=== PATIENT | male | born 1960 | race Hispanic/Latino ===

== ENCOUNTER 2018-12-17 14:32 | Emergency (ER) | payer BC ==
[2018-12-17 14:49] VITALS: O2SAT 98
--- NOTE | 2018-12-17 15:33 | ED PDOC ---
HPI: Back Chief Complaint (Provider): Left sided back pain History Per: Patient History/Exam Limitations: no limitations Onset/Duration Of Symptoms: Days Current Symptoms Are (Timing): Still Present Quality Of Discomfort: Dull Severity: None Pain Scale Rating Of: 8 Previous Symptoms: Back Pain Associated Symptoms: None Exacerbating Factor(s): Other (deep breathing) Additional Complaint(s): 58 yo male with history of melanoma (resected 01/2018) and recent adrenal tumor removal, November 17 2018, was sent by PMD because he was found to have left pleural effusion on chest xray yesterday. Patient reports he has also been complaining of left sided, non-radiating, dull back pain for 2 weeks. Exacerbating factors are deep breathing and movement and alleviating factors are staying still. Reports that he visited his PMD yesterday because of the back pain and she sent him for a Chest Xray that revealed a left pleural effusion; patient reports she told him to come into the ED to rule out a Pulmonary Embolism. Denies chest pain, dysnea, recent trauma, nausea, vomiting, abdominal pain, dysuria, frequency and urgency. PMD: Dr. Spencer Zimmerman in [place]. - Risk Factors AAA Risk Factors: Pos: Older Than 49 Years Of Age Neg: Hypertension, Connective Tissue Disease, Marfan's Syndrome, James- Danlos Syndrome, Prior AAA, 1st Degree Relative/s With AAA <Janee Bhandari - Last Filed: 12/17/18 17:16> <Jhoana Hall - Last Filed: 12/17/18 22:13> Time Seen by Provider: 12/17/18 15:09 Chief Complaint (Nursing): Shortness Of Breath Past Medical History Vital Signs: Last Vital Signs Temp 98.3 F 12/17/18 14:48 Pulse 90 12/17/18 14:48 Resp 18 12/17/18 14:48 BP 113/82 12/17/18 14:48 Pulse Ox 98 12/17/18 14:48 Primary Care Provider: Spencer Zimmerman - Medical History PMH: Hypothyroidism (mild) - Family History Family History: States: Unknown Family Hx <Janee Bhandari - Last Filed: 12/17/18 17:16> Vital Signs: Last Vital Signs Temp 98.1 F 12/17/18 16:30 Pulse 78 12/17/18 16:30 Resp 16 12/17/18 16:30 BP 120/70 12/17/18 16:30 Pulse Ox 98 12/17/18 17:17 <Jhoana Hall - Last Filed: 12/17/18 22:13> - Allergies Allergies/Adverse Reactions: Allergies Allergy/AdvReac Type Severity Reaction Status Date / Time No Known Allergies Allergy Verified 12/17/18 14:48 Supervising Attending Note - Supervising Attending Note The Documented history was done by the: Physician Metal Smelter The documented physical exam was done by the: Physician Metal Smelter The documented procedures were done by the: Physician Metal Smelter - Notes: Notes:: Initial workup performed with resident at [facility]. Initial workup for "blood clot," unclear if blood clot means pulmonary embolism vs complications for pleural effusion. Patient also having worsened pain since adrenal tumor was removed. CT shows small left pleural effusion and to collections of retroperitoneal fluid - possible complications from tumor removal. H&H and VBG elevated to 2.5 discussed with regional director of finance surgeon. Patient advised to followup with primary surgeons. Repeat hemoglobin stable and lactate shows improvement. Patient is stable for discharge. Continue taking T3 provided by PMD. Will give copies of CT to patient. Patient instructed to return if weakness, blood in stool, or any further complications <Jhoana Hall - Last Filed: 12/17/18 22:13> Physical Exam - Physical Exam Appears: Positive for: Uncomfortable Skin: Positive for: Normal Color, Warm, Dry Eye Exam: Positive for: Normal appearance, PERRL Cardiovascular/Chest: Positive for: Regular Rate, Rhythm (S1 and S2 appreciated), Other (Scar present at middle of chest from removal of melanoma) Respiratory: Positive for: Normal Breath Sounds, Rhonchi (Rhonchi and decreased breath sounds present at left lower base. ). Negative for: Decreased Breath Sounds, Accessory Muscle Use, Crackles, Rales, Stridor, Wheezing, Respiratory Distress Gastrointestinal/Abdominal: Positive for: Normal Exam, Bowel Sounds, Soft, Other (Left sided clean incision site present, non-draining .). Negative for: Tenderness, Distended, Guarding, Rebound Back: Positive for: Normal Inspection (Normal gait), Other (Scoliosis present at lumbar; non-tender over area of interest; Negative straight leg testing. ). Negative for: L CVA Tenderness, R CVA Tenderness, Vertebral Tenderness (No paraspinal tenderness. ), Decreased ROM Extremity: Positive for: Capillary Refill (<2 sec capillary refill). Negative for: Tenderness, Pedal Edema, Calf Tenderness, Swelling Neurological/Psych: Positive for: Awake, Alert, Gait (Normal gait) <Janee Bhanadri - Last Filed: 12/17/18 17:16> - Laboratory Results Result Diagrams: 12/17/18 15:41 12/17/18 15:42 - ECG O2 Sat by Pulse Oximetry: 98 - Progress ED Course And Treament: 58 yo male with history of melanoma (resected 01/2018) and recent adrenal tumor removal, November 17 2018, was sent by PMD because he was found to have left pleural effusion on chest X-ray yesterday. Differential: Pulmonary embolism vs. Metastasis Plan: -- Chest Xray- 2 views -- CT angio- PE protocol -- CBC -- CMP -- EKG -- PT -- PTT -- Dr. Spencer Zimmerman's office was contacted at [phone] to understand whether reasoning for sending patient over to the E.D. exactly, whether to rule out a pulmonary embolism or other causes for pleural effusion. Spoke to commutator operator since office was closed and stated that Dr. Zimmerman would not be able to call back only a hospitalist regional director of finance- unable to obtain reports from recent visit or recent Xray at this time. <Janee Bhandari - Last Filed: 12/17/18 17:16> - Laboratory Results Result Diagrams: 12/17/18 20:52 12/17/18 15:42 Lab Results: pO2 23 mm/Hg (30-55) L 12/17/18 20:48 VBG pH 7.39 (7.32-7.43) 12/17/18 20:48 VBG pCO2 49 mmHg (40-60) 12/17/18 20:48 VBG HCO3 26.2 mmol/L 12/17/18 20:48 VBG Total CO2 31.2 mmol/L (22-28) H 12/17/18 20:48 VBG O2 Sat (Calc) 42.6 % (40-65) 12/17/18 20:48 VBG Base Excess 3.7 mmol/L (0.0-2.0) H 12/17/18 20:48 VBG Potassium 4.8 mmol/L (3.6-5.2) 12/17/18 20:48 Sodium 134.0 mmol/L (132-148) 12/17/18 20:48 Chloride 104.0 mmol/L (98-107) 12/17/18 20:48 Glucose 98 mg/dL (75-110) 12/17/18 20:48 Lactate 0.9 mmol/L (0.7-2.1) 12/17/18 20:48 FiO2 21.0 % 12/17/18 20:48 Crit Value Called To Jhoana hall md 12/17/18 15:48 Crit Value Called By [id number] 12/17/18 15:48 Crit Value Read Back Y 12/17/18 15:48 Blood Gas Notified Time 1551 12/17/18 15:48 PT 13.3 Seconds (9.8-13.1) H 12/17/18 15:41 INR 1.2 12/17/18 15:41 APTT 32.9 Seconds (25.6-37.1) 12/17/18 15:41 Total Bilirubin 0.5 mg/dl (0.2-1.3) 12/17/18 15:42 AST 33 U/L (17-59) 12/17/18 15:42 ALT 35 U/L (21-72) 12/17/18 15:42 Alkaline Phosphatase 61 U/L (38-126) 12/17/18 15:42 Total Protein 7.6 G/DL (6.3-8.2) 12/17/18 15:42 Albumin 4.2 g/dL (3.5-5.0) 12/17/18 15:42 Globulin 3.4 gm/dL (2.2-3.9) 12/17/18 15:42 Albumin/Globulin Ratio 1.2 (1.0-2.1) 12/17/18 15:42 <Jhoana Hall - Last Filed: 12/17/18 22:13> Disposition - Disposition Disposition Time: 17:17 <Janee Bhandari - Last Filed: 12/17/18 17:16> - Disposition Disposition Time: 22:03 <Jhoana Hall - Last Filed: 12/17/18 22:13> - Clinical Impression Clinical Impression: Back pain, Pleural effusion, left - Disposition Condition: IMPROVED Instructions: Pleural Effusion (DC) Forms: [employer] (Albanian) Print Language: KYRGYZ Wells Criteria for PE - Wells Criteria for Pulmonary Embolism Clinical Signs and Symptoms of DVT: No P.E is #1 Diagnosis, or Equally Likely: No Heart Rate >100: No Immobilization at least 3 days;Surgery previous 4 weeks: Yes Previous, objectively diagnosed PE or DVT: No Hemoptysis: No Malignancy w/treatment within 6 months, or palliative: No Total Score: 1.5 <Janee Bhandari - Last Filed: 12/17/18 17:16>
--- NOTE | 2018-12-17 15:51 | CARD ---
APPROVED REPORT Date of service: 12/17/2018 EKG Measurement Heart [id number] <Conclusion> Normal sinus rhythm Normal ECG
[2018-12-17 15:52] LABS: VENOUS BLOOD GAS BASE EXCESS 4.4 mmol/L (0.0-2.0); VENOUS BLOOD GAS PCO2 69 mmHg (40-60); VENOUS BLOOD GAS PO2 17 mm/Hg (30-55); VENOUS BLOOD PH 7.29 (7.32-7.43)
[2018-12-17] MEDS ORDERED: Sodium Chloride 0.9% 1,000 ML IV SCH (16:00)
[2018-12-17 16:05] LABS: ALB/GLOB RATIO 1.2 (1.0-2.1); ALBUMIN 4.2 g/dL (3.5-5.0); ALT/SGPT 35 U/L (21-72); AST/SGOT 33 U/L (17-59); BLOOD UREA NITROGEN 23 mg/dl (9-20); CALCIUM 9.1 mg/dL (8.4-10.2); GFR NON-AFRICAN AMERICAN > 60
[2018-12-17 16:11] LABS: INR 1.2; PROTHROMBIN TIME 13.3 Seconds (9.8-13.1)
--- NOTE | 2018-12-17 16:13 | RAD ---
Date of service: 12/17/2018 HISTORY: Cough COMPARISON: No prior. TECHNIQUE: Chest PA and lateral FINDINGS: LINES AND TUBES: None. LUNG AND PLEURA: The lungs are well inflated and clear. No right pleural effusion or pneumothorax. There blunting of the left costophrenic angle. HEART AND MEDIASTINUM: The heart is not enlarged. No aortic atherosclerotic calcifications present. The hilar and mediastinal contours are within normal limits. SKELETAL STRUCTURES: The bony structures are within normal limits for the patient's age. VISUALIZED UPPER ABDOMEN: Normal. OTHER FINDINGS: There are multiple surgical clips in the epigastrium. IMPRESSION: Blunting of the left costophrenic angle could represent a small pleural effusion or pleural thickening. No lobar pneumonia. Clinical follow-up is advised.
[2018-12-17 16:14] LABS: PARTIAL THROMBOPLASTIN TIME 32.9 Seconds (25.6-37.1)
[2018-12-17 16:18] LABS: BASO % 0.6 % (0.0-2.0); EOS # 0.2 K/uL (0.0-0.7); EOS % 3.3 % (0.0-4.0); HEMOGLOBIN 12.4 g/dL (12.0-18.0); LYMPH # 2.6 K/uL (1.0-4.3); LYMPH % 35.2 % (20.0-40.0); MEAN CORPUSCULAR HEMOGLOBIN 29.2 pg (27.0-31.0); MEAN CORPUSCULAR HGB CONC 32.1 g/dL (33.0-37.0); MEAN PLATELET VOLUME 7.8 fl (7.2-11.7); MONO # 0.6 K/uL (0.0-0.8); MONO % 8.9 % (0.0-10.0); NEUT # 3.8 K/uL (1.8-7.0); RBC 4.25 Mil/uL (4.40-5.90); RED CELL DISTRIBUTION WIDTH 13.7 % (11.5-14.5); WHITE BLOOD COUNT 7.3 K/uL (4.8-10.8)
[2018-12-17] MEDS ORDERED: Sodium Chloride 0.9% 50 ML IV ONE (16:40)
[2018-12-17] MEDS ORDERED: Iodixanol 320 MG/ML 100 ML BOTTLE IV ONE (16:40)
--- NOTE | 2018-12-17 17:39 | CT ---
Date of service: 12/17/2018 PROCEDURE: CT Chest with contrast (Pulmonary Angiogram) HISTORY: rule out PE COMPARISON: Plain radiographs performed the same day. TECHNIQUE: Axial computed tomography images were obtained of the chest in the pulmonary arterial phase of enhancement. Coronal and sagittal reformatted images were created and reviewed. Intravenous contrast dose: 85 cc Visipaque 300 Radiation dose: Total exam DLP = 0.0 mGy-cm. This CT exam was performed using one or more of the following dose reduction techniques: Automated exposure control, adjustment of the mA and/or kV according to patient size, and/or use of iterative reconstruction technique. FINDINGS: PULMONARY ARTERIES: There are no filling defects in the pulmonary arteries to suggest acute pulmonary embolism. AORTA: No acute findings. No thoracic aortic aneurysm. No aortic atherosclerotic calcification or mural plaque present. LUNGS: The lungs are well inflated and clear. There is subsegmental atelectasis in the right lung base and compressive atelectasis in the left lower lobe. No nodule, mass or pulmonary consolidation. PLEURAL SPACES: Small left pleural effusion. No right effusion or pneumothorax. HEART: No cardiomegaly. No significant pericardial effusion. LYMPH NODES: No pathologic mediastinal or hilar lymphadenopathy. BONES, CHEST WALL: Within normal limits for the patient's age. No fracture or destructive lesion OTHER FINDINGS: There is an approximately 6.7 x 3.6 x 7.8 cm fluid collection in the left retroperitoneum superior to the left kidney and posterior to the tail of the pancreas. There are multiple surgical clips in the left retroperitoneum related to removal of the adrenal gland. There is also a 6.5 x 3.1 x 7.0 cm left subdiaphragmatic fluid collection. IMPRESSION: 1. No CTA evidence for acute pulmonary embolism. 2. Small left pleural effusion with compressive atelectasis in the left lower lobe. 3. Status post removal of the left adrenal gland. Approximately 6.7 x 3.6 x 7.8 cm fluid collection in the left retroperitoneum superior to the left kidney and posterior to the tail of the pancreas, and 2nd approximately 6.5 x 3.1 x 7.0 cm left subdiaphragmatic fluid collection. These could represent postoperative seroma/fluid collection however the sterility of this collection cannot be determined on the basis of imaging. Clinical and laboratory follow-up is advised.
[2018-12-17 19:21] VITALS: TEMP 98.1
[2018-12-17 20:57] LABS: VENOUS BLOOD GAS BASE EXCESS 3.7 mmol/L (0.0-2.0); VENOUS BLOOD GAS PCO2 49 mmHg (40-60); VENOUS BLOOD GAS PO2 23 mm/Hg (30-55); VENOUS BLOOD PH 7.39 (7.32-7.43)
[2018-12-17 21:01] LABS: BASO % 0.7 % (0.0-2.0); EOS # 0.2 K/uL (0.0-0.7); EOS % 3.2 % (0.0-4.0); HEMOGLOBIN 11.6 g/dL (12.0-18.0); LYMPH # 1.7 K/uL (1.0-4.3); LYMPH % 28.9 % (20.0-40.0); MEAN CELL VOLUME 91.2 fl (80.0-94.0); MEAN CORPUSCULAR HEMOGLOBIN 29.8 pg (27.0-31.0); MEAN CORPUSCULAR HGB CONC 32.7 g/dL (33.0-37.0); MEAN PLATELET VOLUME 7.5 fl (7.2-11.7); MONO # 0.4 K/uL (0.0-0.8); MONO % 6.9 % (0.0-10.0); NEUT # 3.6 K/uL (1.8-7.0); NEUT % 60.3 % (50.0-75.0); NRBC % 0.1 % (0.0-0.0); RBC 3.9 Mil/uL (4.40-5.90); RED CELL DISTRIBUTION WIDTH 14.1 % (11.5-14.5)
[2018-12-17 23:04] VITALS: BP 113/81; PULSE 74; RESP 20
== END 2018-12-17 19:34 | disposition home or self-care (01) ==
LOC: H.ER 14:32
DX: M54.9 Dorsalgia, unspecified (principal); J90 Pleural effusion, not elsewhere classified; E03.9 Hypothyroidism, unspecified; I10 Essential (primary) hypertension
CPT/HCPCS: 71046; 71275; 80053; 82803; 85025; 85610; 85730; 93005; 96360; 99284; J7030; Q9967